=== PATIENT | female | born 1965 | race Caucasian/White ===

== ENCOUNTER 2016-06-08 09:03 | Outpatient (CLI) | payer BC ==
--- NOTE | 2016-06-11 14:40 | DIAGNOSTIC IMAGING REPORT ---
PROCEDURE: MG B/L IMPLANTS - SCREENING INDICATION: SCREENING TECHNIQUE: CC and MLO digital views of each breast with CC and MLO digital implant-displacement views. COMPARISON: Mammograms 07/30/2014, 03/30/2013 and 03/29/2012. FINDINGS: Computer-aided detection applied. Moderately dense pattern. Intact prepectoral implants. No suspicious masses, architectural distortion or pleomorphic microcalcifications. No significant interval change. IMPRESSION: 1. Stable mammogram without mammographic evidence of malignancy 2. Intact bilateral breast implants RESULT CODE: 1- Negative. A. A negative report should not delay biopsy if a dominant or clinically suspicious mass is present. 10-15% of cancers are not identified by x-ray. B. A negative report may reinforce clinical impression. C. Adenosis and dense breasts may obscure an underlying neoplasm. D. False positive reports average 6-10%. E.. A yearly screening mammogram is recommended. A reminder letter will be scheduled.
== END 2016-06-08 23:00 ==
LOC: MAM SRH 09:03
DX: Z12.31 Encounter for screening mammogram for malignant neoplasm of breast (principal)